=== PATIENT | female | born 1985 | race Caucasian/White ===

== ENCOUNTER 2017-01-09 15:49 | Emergency (ER) | payer OTHER ==
[~2017-01-09] VITALS: Ht 165.1 cm; Wt 61.2 kg
[2017-01-09 16:00] VITALS: BP 117/67
--- NOTE | 2017-01-09 16:20 | PHYS DOC ---
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 Patient states that she recently moved locally, she says she and her spouse moved themselves. She's been doing a lot of lifting and physical labor. She had a PT test for the this past . Temperatures have been in the high 90s with heat indexes and humidity very high. The patient is very fit and says she's been trying to hydrate. Over the course of the past week or so she's had increasing low back stiffness and generalized pain. Today pain and stiffness so great that it hard for her to stand up straight. She denies any leg symptoms or actual back injury, no saddle anesthesia or associated bowel/ bladder symptoms. Today while sitting at the computer she experienced muscle spasms in her leg and neck and has been drinking more water. Symptoms described as moderate pain is achy and stiff worse with movement better with rest. No prior history of back injury or chronic discomforts. Timing/Duration: week, getting worse Severity/Quality: moderate, dullness Location: lumbar spine, paraspinous muscles Method of Injury: other Modifying Factors: worse with jarring, worse with movement, improves with rest Associated Symptoms: muscle spasms, lower back pain Allergies: Coded Allergies: amoxicillin (Verified Allergy, Unknown, Rash, 01/09/17) Past Medical History Medical History: no pertinent history Surgical History: no surgical history Social History Smoker: non-smoker Alcohol: occasionally Drugs: none Review of Systems Constitutional: denies chills, denies diaphoresis, denies fever Respiratory: denies cough, denies shortness of breath Cardiovascular: denies chest pain, denies palpitations Gastrointestinal: denies abdominal pain, denies diarrhea, denies nausea, denies vomiting Genitourinary: denies dysuria, denies frequency, denies hematuria Musculoskeletal: see HPI Psychiatric/Neurological: denies headache, denies numbness, denies paresthesia , denies weakness Physical Exam General Appearance: WD/WN, no apparent distress HEENT: normal ENT inspection Neck: non-tender, full range of motion Cardiovascular/Respiratory: normal peripheral pulses, no respiratory distress Gastrointestinal: non tender, soft Back: no CVA tenderness, no vertebral tenderness, decreased range of motion, muscle spasm (lumbar paraspinal hypertonicity with mild tenderness noted there is no midline or bony pain no palpable malalignment or bony deformity.) Extremities: no evidence of injury, normal range of motion, non-tender, pelvis stable Neurologic/Psychiatric: intermission coordinator II-XII nml as tested, no motor/sensory deficits, alert, normal mood/affect, oriented x 3, other (DTRs/strength/sensory equal and intact bilateral lower extremities, negative straight leg raise bilaterally) Skin: normal color, warm/dry Orders, Labs, Meds I discussed the treatment plan including rest, hydration, oral medications. I discussed imaging and the lack of indication at this point no trauma history or neurologic radiculopathy symptoms. I discussed follow-up and her questions were answered she expressed agreement and understanding with the treatment plan. Departure Time of Disposition: 16:16 Disposition: 01 HOME, SELF-CARE Diagnosis: lumbar strain Condition: GOOD Patient Instructions: Low Back Strain with Rehab-SportsMed Additional Instructions: Rest, no strenuous activity. Keep activity to "pain free." Aggressive hydration with Gatorade. Eat 1 banana twice daily Warm compresses/heating pad to affected area 15-20 minutes 4-6 times daily followed by gentle stretching. Prescription: Prednisone, cyclobenzaprine, [place] 5 mg quantity 10 Take medications with food to avoid nausea. Follow-up at [facility] in 3-5 days for recheck. Return to the ED with new or changing symptoms. BALJINDER Freeman DO Jan 09, 2017 16:20
[2017-01-09] MEDS ORDERED: KETOROLAC 60 MG/2 ML VIAL. IM ONE (16:30)
== END 2017-01-09 16:42 | disposition home or self-care (01) ==
LOC: ER 15:49
DX: S39.012A Strain of muscle, fascia and tendon of lower back, initial encounter (principal); Z88.1 Allergy status to other antibiotic agents; X58.XXXA Exposure to other specified factors, initial encounter; Y93.89 Activity, other specified; Y99.8 Other external cause status; Y92.89 Other specified places as the place of occurrence of the external cause
CPT/HCPCS: 96372; 99283; J1885

== ENCOUNTER → 2021-06-01 | Outpatient (CLI) | payer OTHER ==
--- NOTE | 2021-06-02 09:32 | RAD ---
US HEAD/NECK SOFT TISSUE History:Reason: ENLARGED LYMPH NODES / Spl. Instructions: / History: Comparison: None Technique: Sonographic examination of the anterior neck soft tissues Findings: Heterogeneous lobulated lesion within the anterior neck soft tissues within the submental region wilfrid ures 0.5 x 0.5 x 0.3 cm. Impression: 1. Small lesion within the submental region, most likely lymph node. Recommend continued clinical fo llow-up and imaging follow-up if interval growth. Electronically signed by: Ivan Ulrich DO (06/02/2021 9:30 AM) [id number]
== END ==
LOC: US 16:00
PROVIDERS: ATTEND Family Medicine
DX: R59.0 Localized enlarged lymph nodes (principal)
CPT/HCPCS: 76536

== ENCOUNTER → 2021-08-25 | Outpatient (CLI) | payer OTHER ==
--- NOTE | 2021-08-25 12:22 | RAD ---
Complete abdominal ultrasound 08/25/2021 11:05 AM Clinical History: Abdominal pain: Technique: Ultrasound examination of the abdomen was performed, and multiple static images were subm itted for review. Comparison: None Findings: The visualized portions of the pancreas are within normal limits. The visualized aorta and IVC are un remarkable. The gallbladder is normal in appearance without wall thickening, stones, or sludge. No pericholecysti c fluid is seen. Sonographic Resendez's sign is negative. The common bile duct measures 2 mm in diamet er which is within normal limits. The liver measures 16 cm longitudinally. The liver is normal in echotexture. No intrahepatic biliary ductal dilatation is seen. No focal hepatic lesions are identified. The spleen is normal in appearance measuring 8 cm longitudinally. The bilateral kidneys are normal in appearance without evidence of obstructive uropathy, nephrolithia sis, or focal renal lesion. Right kidney measures 9.9 in length. Left kidney measures 9.9 cm in lengt h. Impression: Normal sonographic appearance of the abdomen Electronically signed by: Chi Gallegos MD (08/25/2021 12:20 PM) [id number]
--- NOTE | 2021-08-25 13:35 | RAD ---
US TRANSVAGINAL Clinical Indication: Reason: PELVIC PAIN / Spl. Instructions: / History: Comparison: None. TECHNIQUE: Real-time ultrasound imaging of the pelvis using transvaginal window is performed. Findings: Anteverted uterus measures 7.7 x 3.9 x 3.4 cm. IUD is in appropriate position. There is no thickening of the endometrium. There is a small nabothian cyst. There are bilateral prominent parauterine veins . There is a 1.1 cm follicle of the right ovary. There are small follicles of the left ovary. There is normal blood flow in the ovaries. There is no evidence of adnexal mass. No pelvic free fluid is identified. IMPRESSION: 1. There are prominent bilateral parauterine veins. Correlate for pelvic congestion. 2. Small nabothian cyst. 3. IUD in appropriate position. Electronically signed by: Skyler Caballero MD (08/25/2021 1:33 PM) [id number]
== END ==
LOC: US 11:01
PROVIDERS: ATTEND Clinical Nurse Specialist Family Health
DX: N85.4 Malposition of uterus (principal); N94.89 Other specified conditions associated with female genital organs and menstrual cycle
CPT/HCPCS: 76700; 76830